=== PATIENT | female | born 1995 | race Caucasian/White ===

== ENCOUNTER 2016-05-07 17:25 | Emergency (ER) | payer OTHER ==
--- NOTE | 2016-05-07 18:32 | EDPHY ---
H & P Stated Complaint: SI, no plan, "I don't want to live anymore", contracts for safety - Personal History LMP (Females 10-55): 1-7 Days Ago Current Tetanus Diphtheria and Acellular Pertussis (TDAP): Yes - Medical/Surgical History Hx Asthma: Yes Hx Chronic Respiratory Disease: No Hx Diabetes: No Hx Cardiac Disease: No Hx Renal Disease: No Hx Cirrhosis: No Hx Alcoholism: No Hx HIV/AIDS: No Hx Splenectomy or Spleen Trauma: No Other PMH: asthma, Rt ACL repair - Social History Smoking Status: Never smoked Time Seen by Provider: 05/07/16 18:11 HPI/ROS: Chief complaint: Suicidal ideation History of present illness: This is a 20-year-old female with a history of depression who presents to the emergency department for evaluation of worsening depression, now with suicidal ideation. No specific plan. She does report approximately a week ago her Wellbutrin dosage was changed. She denies homicidal ideation. She denies illness or injury. Review of systems: A 10 point review of systems was obtained and other than described above was negative (Berny Guzman) - Physical Exam Exam: General Appearance: Alert, nontoxic. Eyes: Pupils equal and round no pallor or injection. ENT, Mouth: Mucous membranes moist. Respiratory: There are no retractions, lungs are clear to auscultation. Cardiovascular: Regular rate and rhythm. Gastrointestinal: Abdomen is soft and non tender, no masses, bowel sounds normal. Neurological: Alert and oriented. Strength and sensation intact and symmetrical. Skin: Warm and dry, no rashes. Musculoskeletal: Neck is supple non tender. Extremities are symmetrical, full range of motion. Psychiatric: Patient is oriented X 3, there is no agitation. (Berny Guzman) Constitutional: Initial Vital Signs Temperature (C) 36.7 C 05/07/16 17:40 Heart Rate 74 05/07/16 17:40 Respiratory Rate 18 05/07/16 17:40 Blood Pressure 120/77 05/07/16 17:40 O2 Sat (%) 97 05/07/16 17:40 O2 Delivery Mode Room Air Allergies/Adverse Reactions: amoxicillin Allergy (Verified 05/07/16 17:40) Home Medications: Medication Instructions Recorded Wellbutrin Xl 05/07/16 Medical Decision Making ED Course/Re-evaluation: Patient seen under the supervision of my secondary supervising physician Dr. Jerry Steinberg. Patient presents to emergency department with suicidal ideation. She is nontoxic. She is medically evaluated and cleared for psychiatric evaluation. This is pending at time of dictation. Care of patient is turned over to my attending physician Dr. Jerry Steinberg at end of shift. (Berny Guzman) 2235 care assumed by me from Dr. Steinberg pending placement. [address] Steinberg pending placement. No issues with this patient during my care overnight. (Delvis High) Patient has remained stable on my shift. She has been evaluated and medically cleared and is awaiting placement Patient has been evaluated by mental health and accepted at [facility] by Dr. Meyers for inpatient psychiatric treatment. (Jerry Steinberg) Differential Diagnosis: Included but not limited to depression, bipolar, schizophrenia, substance abuse (Berny Guzman) Care Turn Over: Dr. High at 2220. (Jerry Steinberg) - Data Points Laboratory Results: Laboratory Results 05/07/16 18:23 05/07/16 18:23 Departure - Departure Disposition: Other Psych, Not [facility] Clinical Impression: Suicidal ideation Condition: Fair Referrals: NONE *PRIMARY CARE P,. [Unknown] - As per Instructions
[2016-05-07 18:47] LABS: % IMMATURE GRANULYOCYTES 0.2 % (0.0-1.1); ABSOLUTE IMMATURE GRANULOCYTES 0.01 10^3/uL (0.00-0.10); ADD DIFF? NO; ADD MORPH? NO; ADD SCAN? NO; ATYPICAL LYMPHOCYTE FLAG 20 (0-99); FRAGMENT RBC FLAG 0 (0-99); HEMATOCRIT 41.4 % (38.0-47.0); HEMOGLOBIN 13.8 g/dL (12.6-16.3); LEFT SHIFT FLG 0 (0-99); LIPEMIA HEMOLYSIS FLAG 80 (0-99); MEAN CELL HEMOGLOBIN 29.4 pg (27.9-34.1); MEAN CELL HEMOGLOBIN CONCENTR. 33.3 g/dL (32.4-36.7); MEAN CELL VOLUME 88.3 fL (81.5-99.8); MEAN PLATELET VOLUME 10.7 fL (8.7-11.7); PLATELET CLUMPS FLAG 0 (0-99); PLATELET COUNT 207 10^3/uL (150-400); RED BLOOD CELL COUNT 4.69 10^6/uL (4.18-5.33); RED CELL DISTRIBUTION WIDTH 13.4 % (11.5-15.2)
[2016-05-07 19:06] LABS: ANION GAP 12 mEq/L (8-16); CALCIUM 9.5 mg/dL (8.5-10.4); CARBON DIOXIDE 27 mEq/l (22-31); CHLORIDE 103 mEq/L (97-110); CREATININE 0.8 mg/dL (0.6-1.0); ETHANOL SERUM < 10 mg/dL (0-10); GLOMERULAR FILTRATION RATE > 60; GLUCOSE 89 mg/dL (70-100); POTASSIUM 4.3 mEq/L (3.5-5.2); SODIUM 142 mEq/L (134-144)
[2016-05-07 22:43] VITALS: BP 112/85; PULSE 70; RESP 16; TEMP 98.2; O2SAT 96
== END 2016-05-08 11:31 ==
DX: R45.851 Suicidal ideations (principal); J45.909 Unspecified asthma, uncomplicated
CPT/HCPCS: 80305; G0480

== ENCOUNTER 2017-05-19 18:15 | Emergency (ER) | payer OTHER ==
[2017-05-19 18:27] VITALS: BP 130/87; PULSE 102; RESP 17; TEMP 98.2; O2SAT 99
--- NOTE | 2017-05-19 18:43 | EDPHY ---
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 Shorts that she felt a popping sensation in the anterior portion of her knee with moderate, constant, nonradiating pain. Patient had ACL surgery performed approximately 2 years ago and feels that her knee has not been the same. She is complaining of some laxity with flexion. Denies paresthesias/weakness/locking/popping. She is ambulatory without deficit. Modifying Factors: None Comment: ROS: see HPI Constitutional: No fever, no chills, no weight loss Eyes: No blurred vision Respiratory: No shortness of breath, no cough Cardiovascular: No chest pain Gastrointestinal: No nausea, no vomiting no diarrhea Genitourinary: No dysuria Extremities: No myalgias Neurologic: No weakness, no numbness Skin: No rashes Hematologic: No bruising, no bleeding MEDICAL/SURGICAL/SOCIAL HISTORY: Medical history: Generally healthy. Does not take any regular medications. Surgical history: Denies Social history: Local [employer] student CONSTITUTIONAL: Well-developed well-nourished young adult female, awake and alert, no obvious distress HEENT: Atraumatic and normocephalic. NECK: supple, no midline tenderness, flexion 45 degrees, extension 45 degrees, right and left lateral flexion 45 degrees. No meningismus. Cardiovascular: Normal S1/S2, regular rate, regular rhythm, without murmur rub or gallop. PULMONARY/CHEST: Symmetrical and nontender. no crepitus. Clear to auscultation bilaterally. Good air movement. No accessory muscle usage. ABDOMEN: Soft, nondistended, nontender, no ecchymosis. PELVIC: no pain with rocking; bilateral hips flexion 125 degrees, extension 30 degrees, with no pain internal rotation and no pain external rotation. BACK: No midline tenderness, no paraspinous spasm, deep tendon reflexes 2/2, no pain with straight leg raise EXTREMITIES: 2/2 pulses, strength 5/5, right KNEE: no effusion, no medial and lateral joint line tenderness, full extension to 180, flexion to 120. mild pain with varus exam and mild laxity noted. No pain with valgus exam. No pain with anterior drawer. Mild pain posterior drawer test. no deformities, no clubbing, no cyanosis or edema. NEUROLOGICAL: no focal neuro deficits. GCS 15. Light touch sensation intact. SKIN: Warm and dry, no erythema. no rash. Good capillary refill. Source: Patient Exam Limitations: No limitations - Personal History LMP (Females 10-55): 1-7 Days Ago Current Tetanus/Diphtheria Vaccine: Yes - Medical/Surgical History Hx Asthma: Yes Hx Chronic Respiratory Disease: No Hx Diabetes: No Hx Cardiac Disease: No Hx Renal Disease: No Hx Cirrhosis: No Hx Alcoholism: No Hx HIV/AIDS: No Hx Splenectomy or Spleen Trauma: No Other PMH: asthma, Rt ACL repair - Social History Smoking Status: Never smoked Constitutional: Initial Vital Signs Temperature (C) 36.8 C 05/19/17 18:25 Heart Rate 102 H 05/19/17 18:25 Respiratory Rate 17 05/19/17 18:25 Blood Pressure 130/87 H 05/19/17 18:25 O2 Sat (%) 99 05/19/17 18:25 O2 Delivery Mode Room Air Allergies/Adverse Reactions: amoxicillin Allergy (Verified 05/19/17 18:24) Home Medications: Medication Instructions Recorded Acetaminophen/Codeine 300/30Mg 1 each PO Q6 PRN #6 tab 05/19/17 [Tylenol #3 (*)] Bcp 05/19/17 Lexapro 10 MG 05/19/17 Medical Decision Making Procedures: Procedure: Splint placement. A right knee immobilizer was applied by the Emergency Room auto electrical technician. After application of the splint I returned and re-examined the patient. The splint was adequately immobilizing the joint and distal to the splint the patient's circulation and sensation was intact. ED Course/Re-evaluation: Patient politely declined x-ray imaging as she knows that she requires an MRI if symptoms persist. She is followed at that clinic department at [facility] Physical exam showed mild pain with regards to PCL and lateral meniscus. No extensor mechanism deficit appreciated. Patient placed in knee immobilizer, crutches provided, rice therapy, orthopedic follow-up No signs of neurovascular compromise/tenting of skin/compartment syndrome/ extremities and joints examined above and below area of concern and are neurovascularly intact. This patient was seen under the supervision of my secondary supervising physician. I evaluated care for this patient independently. Differential Diagnosis: Knee injury while [] including but not limited to fracture, ACL injury, contusion, muscular strain, and meniscus injury. Departure - Departure Disposition: Home, Routine, Self-Care Clinical Impression: Internal derangement of right knee Condition: Good Instructions: Knee Sprain (ED), Knee Immobilizer (ED) Additional Instructions: Wear the knee immobilizer and use crutches while out of bed. Take Tylenol 650 mg every 4 hours and/or Ibuprofen 600 mg every 8 hours with food as needed for pain. Apply ice for 30 minutes at a time; 2-3 times per day for the next 1-2 days. Follow up with Orthopedics in 7-10 days at which time they will evaluate and recommend with you if conservative management versus MRI is indicated. Referrals: Angelo Lester MD [Medical Doctor] - As per Instructions Prescriptions: Acetaminophen/Codeine 300/30Mg [Tylenol #3 (*)] 1 each PO Q6 PRN #6 tab PRN Reason: Pain, Severe
== END 2017-05-19 18:55 | disposition home or self-care (01) ==
DX: M23.91 Unspecified internal derangement of right knee (principal); J45.909 Unspecified asthma, uncomplicated; X58.XXXA Exposure to other specified factors, initial encounter; Y99.8 Other external cause status; Y93.89 Activity, other specified
CPT/HCPCS: L1830